=== PATIENT | female | born 2000 | race Caucasian/White ===

== ENCOUNTER → 2024-09-07 | Outpatient (CLI) | payer BC | LOC: M CARPUL 14:59 | DX: R05.9 Cough, unspecified (principal) ==

== ENCOUNTER → 2024-09-08 | Outpatient (CLI) | payer BC ==
[~2024-09-08] MED LIST: METHACHOLINE KIT (6 VIAL.NEB PREMIX) INH ONE
== END ==
LOC: M CARPUL 11:43
DX: R05.9 Cough, unspecified (principal)
CPT/HCPCS: 94070; J7674

== ENCOUNTER → 2024-09-22 | Outpatient (CLI) | payer BC | LOC: M RAD 06:50 | PROVIDERS: ATTEND Hospitalist | DX: R05.9 Cough, unspecified (principal) ==